=== PATIENT | female | born 1940 | race Caucasian/White ===

== ENCOUNTER 2021-01-06 09:27 | Inpatient (IN) | payer MEDICARE, OTHER ==
[2021-01-06] MEDS ORDERED: MORPHINE SULFATE 4 MG/ML SYRINGE IVP STA ×2 (09:52→11:28)
--- NOTE | 2021-01-06 09:59 | ED ---
General Adult HPI - General Chief complaint: Fall Stated complaint: fall Time Seen by Provider: 01/06/21 09:34 Source: patient, EMS, RN notes reviewed, Caregiver Mode of arrival: EMS Limitations: altered mental status - History of Present Illness Initial comments: Patient is a pleasant 80-year-old female presenting to the emergency department following a fall. Patient was walking up a step and fell down. Patient sustained injury to her left leg. Injury was witnessed. No head injury or loss of consciousness. Patient only complains of discomfort of her left leg. Patient is a poor historian. Unclear if history of similar injury previously. Patient did not ambulate following the injury. [employer] states patient is at baseline mental status. - Related Data Home Medications Medication Instructions Recorded Confirmed Albuterol Nebulized [Ventolin 2.5 mg INHALATION RT-Q4H PRN 01/06/21 01/06/21 Nebulized] Alendronate Sodium [Fosamax] 70 mg PO WE 01/06/21 01/06/21 Aspirin EC [Ecotrin Low Dose] 81 mg PO DAILY@79901/06/21 01/06/21 Calcium 500 + D 400 1 tab PO DAILY@79901/06/21 01/06/21 Colloidal Oatmeal [Eucerin Eczema 1 applic TOPICAL HS@199901/06/21 01/06/21 Relief] Docusate [Colace] 100 mg PO BID@08,199901/06/21 01/06/21 Ergocalciferol (Vitamin D2) 50 mcg PO DAILY@0800 01/06/21 01/06/21 [Vitamin D2 (2000 Iu)] Famotidine [Pepcid] 20 mg PO DAILY PRN 01/06/21 01/06/21 Memantine [Namenda] 10 mg PO BID@08,199901/06/21 01/06/21 Midodrine HCl [ProAmantine] 2.5 mg PO BID@08,199901/06/21 01/06/21 Mirabegron [Myrbetriq] 50 mg PO DAILY@0800 01/06/21 01/06/21 Mirtazapine [Remeron] 15 mg PO HS 01/06/21 01/06/21 Montelukast [Singulair] 10 mg PO DAILY PRN 01/06/21 01/06/21 OLANZapine [ZyPREXA] 7.5 mg PO HS@199901/06/21 01/06/21 Sennosides/Docusate Sodium [Senna 2 cap PO HS 01/06/21 01/06/21 Plus 8.6-50 mg Softgel] Sertraline [Zoloft] 50 mg PO BID@0800,1700 01/06/21 01/06/21 busPIRone HCL [Buspar] 7.5 mg PO TID@0800,1700,199901/06/21 01/06/21 diphenhydrAMINE [Benadryl] 25 - 50 mg PO Q6H PRN 01/06/21 01/06/21 hydrOXYzine HCL [Atarax] 50 mg PO Q6H PRN 01/06/21 01/06/21 Allergies Allergy/AdvReac Type Severity Reaction Status Date / Time sulfamethoxazole Allergy Rash/Hives Verified 01/06/21 10:16 [From Bactrim] trimethoprim [From Bactrim] Allergy Rash/Hives Verified 01/06/21 10:16 Review of Systems ROS Statement: Those systems with pertinent positive or pertinent negative responses have been documented in the HPI. ROS Other: All systems not noted in ROS Statement are negative. Constitutional: Denies: fever Eyes: Denies: eye pain ENT: Denies: ear pain Respiratory: Denies: cough Cardiovascular: Denies: chest pain Endocrine: Denies: fatigue Gastrointestinal: Denies: abdominal pain Genitourinary: Denies: dysuria Musculoskeletal: Reports: as per HPI. Denies: back pain Skin: Denies: rash Neurological: Denies: headache Past Medical History Past Medical History: Osteoarthritis (OA) Past Surgical History: Joint Replacement, Orthopedic Surgery Additional Past Surgical History / Comment(s): PT is mentally handicapped Past Psychological History: Anxiety Smoking Status: Never smoker Past Alcohol Use History: None Reported Past Drug Use History: None Reported General Exam Limitations: altered mental status General appearance: alert, in no apparent distress Head exam: Present: atraumatic, normocephalic Eye exam: Present: normal appearance, PERRL, EOMI ENT exam: Present: normal oropharynx Neck exam: Present: normal inspection, full ROM. Absent: tenderness Respiratory exam: Present: normal lung sounds bilaterally Cardiovascular Exam: Present: regular rate, normal rhythm Expanded Peripheral pulses: 2+: Dorsalis Pedis (R), Dorsalis Pedis (L) GI/Abdominal exam: Present: soft. Absent: tenderness Extremities exam: Present: other (Left lower tibia region with opening with protrusion of tibia, approximately 2 cm. Mild oozing blood. Apparent def ormity. Distally patient is able to move toes and sense light touch.) Back exam: Present: normal inspection. Absent: vertebral tenderness Neurological exam: Present: alert. Absent: motor sensory deficit Expanded Neurological exam: Present: protecting the airway Patient oriented to: Present: person, place. Absent: time ([employer] states chronic) Speech: Present: fluid speech Eye Response: (4) open spontaneously Motor Response: (6) obeys commands Verbal Response: (4) confused conversation Psychiatric exam: Present: normal affect, normal mood Skin exam: Present: normal color Course Vital Signs 01/06/21 01/06/21 09:36 10:51 Temperature 98.5 F Pulse Rate 89 91 Respiratory 18 16 Rate Blood Pressure 160/82 159/82 O2 Sat by Pulse 96 98 Oximetry - Reevaluation(s) Reevaluation #1: 01/06/21 09:59 Area irrigated with saline and Betadine. 01/06/21 10:43 X-rays are available. Orthopedics has been paged. 01/06/21 11:02 Orthopedics has been paged again 01/06/21 11:21 Case was discussed with Dr. Cardenas who is in the OR at this time. He does recommend washing the area out which has arty been done as well as emergency department reduction and attempt to suture with a couple of nylon sutures. Otherwise patient can be admitted to him and they will evaluate patient later. 01/06/21 11:44 Ronald is evaluating patient and did do reduction and splinting. Medical Decision Making - Lab Data Result diagrams: 01/06/21 10:35 01/06/21 10:35 Lab Results 01/06/21 01/06/21 01/06/21 Range/Units 10:35 10:35 10:35 WBC 9.8 (3.8-10.6) k/uL RBC 3.85 (3.80-5.40) m/uL Hgb 12.0 (11.4-16.0) gm/dL Hct 37.0 (34.0-46.0) % MCV 95.9 (80.0-100.0) fL MCH 31.1 (25.0-35.0) pg MCHC 32.4 (31.0-37.0) g/dL RDW 14.1 (11.5-15.5) % Plt Count 288 (150-450) k/uL MPV 8.2 Neutrophils % 81 % Lymphocytes % 14 % Monocytes % 3 % Eosinophils % 1 % Basophils % 0 % Neutrophils # 7.9 H (1.3-7.7) k/uL Lymphocytes # 1.3 (1.0-4.8) k/uL Monocytes # 0.3 (0-1.0) k/uL Eosinophils # 0.1 (0-0.7) k/uL Basophils # 0.0 (0-0.2) k/uL PT 10.5 (9.0-12.0) sec INR 1.0 (<1.2) APTT 21.2 L (22.0-30.0) sec Sodium 139 (137-145) mmol/L Potassium 4.6 (3.5-5.1) mmol/L Chloride 107 (98-107) mmol/L Carbon Dioxide 29 (22-30) mmol/L Anion Gap 3 mmol/L BUN 23 H (7-17) mg/dL Creatinine 0.75 (0.52-1.04) mg/dL Est GFR (CKD-EPI)AfAm 88 (>60 ml/min/1.73 sqM) Est GFR (CKD-EPI)NonAf 76 (>60 ml/min/1.73 sqM) Glucose 113 H (74-99) mg/dL Calcium 8.9 (8.4-10.2) mg/dL Disposition Clinical Impression: Open fracture of left tibia and fibula Disposition: ADMITTED IP TO THIS HOSP Condition: Serious Is patient prescribed a controlled substance at d/c from ED?: No Referrals: Miki Weston MD [Primary Care Provider] - 1-2 days Decision Time: 11:22
--- NOTE | 2021-01-06 10:44 | XR ---
AP pelvis HISTORY: Trauma and pain Single frontal view of the pelvis is submitted. No priors for comparison Patient shows postop change status post open reduction internal fixation of the proximal left femur, there is cortical thickening. Some irregularity the inferior pubic ramus on the right does not appear acute and may be due to remote trauma. There is a spinal curvature. Degenerative disc changes are pr esent in the visualized lower lumbar spine. Bone mineralization is reduced. IMPRESSION: No acute fracture or dislocation is evident. Evidence of prior trauma.
--- NOTE | 2021-01-06 10:46 | XR ---
EXAMINATION TYPE: XR chest 1V DATE OF EXAM: 01/06/2021 COMPARISON: NONE HISTORY: Trauma and pain TECHNIQUE: Single frontal view of the chest is obtained. FINDINGS: There is no focal air space opacity, pleural effusion, or pneumothorax seen. The cardiac silhouette size is within normal limits. The osseous structures are intact. Linear density in the p erihilar location on the right may be due to subsegmental atelectatic changes. The lung volumes are l ow. Aorta is dense. Patient is rotated. IMPRESSION: No significant abnormality evident. Expiratory rotated exam. Some minimal subsegmental a telectatic changes may be present.
--- NOTE | 2021-01-06 10:49 | XR ---
Left leg and left ankle HISTORY: Trauma and pain 2 views the left ankle, 2 views the left leg There is a comminuted distal metaphyseal left fibular fracture and distal tibial fracture with bayone t apposition of the tibial fracture, posterior and medial displacement, rotatory component, posterior angulation at the fractures with displaced fracture fragments. IMPRESSION: Fractures as described.
[2021-01-06 10:54] LABS: Basophils % (A) 0 %; Eosinophils # (A) 0.1 k/uL (0-0.7); Eosinophils % (A) 1 %; Lymphocytes # (A) 1.3 k/uL (1.0-4.8); Lymphocytes % (A) 14 %; MCH 31.1 pg (25.0-35.0); MCHC 32.4 g/dL (31.0-37.0); MCV 95.9 fL (80.0-100.0); Mean Platelet Volume 8.2; Monocytes # (A) 0.3 k/uL (0-1.0); Monocytes % (A) 3 %; Neutrophils # (A) 7.9 k/uL (1.3-7.7); Neutrophils % (A) 81 %; Platelet Count 288 k/uL (150-450); RBC 3.85 m/uL (3.80-5.40); RDW 14.1 % (11.5-15.5); WBC 9.8 k/uL (3.8-10.6)
[2021-01-06 10:56] LABS: Calcium 8.9 mg/dL (8.4-10.2)
[2021-01-06 11:10] LABS: Prothrombin Time 10.5 sec (9.0-12.0)
[2021-01-06 11:17] LABS: Partial Thromboplastin Time 21.2 sec (22.0-30.0)
[2021-01-06 11:19] LABS: Potassium 4.6 mmol/L (3.5-5.1)
[2021-01-06] MEDS ORDERED: MIDAZOLAM 1 MG/ML 5 ML VIAL IV STA (11:28)
[2021-01-06] MEDS ORDERED: LIDOCAINE 1% INJ 10MG/ML (20 ML MDV) SQ ONE (11:28)
[2021-01-06] MEDS ORDERED: NALOXONE 0.4 MG/ML 1 ML VIAL IV PRN (11:45)
[2021-01-06] MEDS ORDERED: DIPH,PERTUS(ACELL)TETVAC-LF 0.5 ML VIAL IM ONE (12:03)
--- NOTE | 2021-01-06 12:17 | P.HPOR ---
History of Present Illness H&P Date: 01/06/21 Chief Complaint: Left leg pain 80 yo demented female presents with her caregiver from her adult foster home after a fall from standing. She lives of left lower extremity pain. She was found to have an open tib-fib fracture distal one third in the emergency department. Patient was seen and examined in the emergency department she has a obvious deformity of her left lower extremity. She is very demented unable to provide a very thorough history and her caregiver is doing most of her history to us is at bedside. She denies any loss of consciousness or blunt head trauma with the fall she denies any pain in any other areas currently. She is able to move her right lower extremity as well as her upper extremities without any issues. She shakes her head no for fevers or chills or shortness of breath at this time and simply puts her left leg and pain. Review of Systems 14 points review of systems completed and as stated in HPI, all other systems reviewed are negative. Past Medical History Past Medical History: Osteoarthritis (OA) Past Surgical History: Joint Replacement, Orthopedic Surgery Additional Past Surgical History / Comment(s): PT is mentally handicapped Past Psychological History: Anxiety Smoking Status: Never smoker Past Alcohol Use History: None Reported Past Drug Use History: None Reported Medications and Allergies Home Medications Medication Instructions Recorded Confirmed Type Albuterol Nebulized [Ventolin 2.5 mg INHALATION RT-Q4H PRN 01/06/21 01/06/21 History Nebulized] Alendronate Sodium [Fosamax] 70 mg PO WE 01/06/21 01/06/21 History Aspirin EC [Ecotrin Low Dose] 81 mg PO DAILY@79901/06/21 01/06/21 History Calcium 500 + D 400 1 tab PO DAILY@79901/06/21 01/06/21 History Colloidal Oatmeal [Eucerin Eczema 1 applic TOPICAL HS@199901/06/21 01/06/21 History Relief] Docusate [Colace] 100 mg PO BID@01/06/21 01/06/21 History Ergocalciferol (Vitamin D2) 50 mcg PO DAILY@79901/06/21 01/06/21 History [Vitamin D2 (2000 Iu)] Famotidine [Pepcid] 20 mg PO DAILY PRN 01/06/21 01/06/21 History Memantine [Namenda] 10 mg PO BID@0800,199901/06/21 01/06/21 History Midodrine HCl [ProAmantine] 2.5 mg PO BID@0800,199901/06/21 01/06/21 History Mirabegron [Myrbetriq] 50 mg PO DAILY@0800 01/06/21 01/06/21 History Mirtazapine [Remeron] 15 mg PO HS 01/06/21 01/06/21 History Montelukast [Singulair] 10 mg PO DAILY PRN 01/06/21 01/06/21 History OLANZapine [ZyPREXA] 7.5 mg PO HS@199901/06/21 01/06/21 History Sennosides/Docusate Sodium [Senna 2 cap PO HS 01/06/21 01/06/21 History Plus 8.6-50 mg Softgel] Sertraline [Zoloft] 50 mg PO BID@0800,1700 01/06/21 01/06/21 History busPIRone HCL [Buspar] 7.5 mg PO TID@0800,1700,199901/06/21 01/06/21 History diphenhydrAMINE [Benadryl] 25 - 50 mg PO Q6H PRN 01/06/21 01/06/21 History hydrOXYzine HCL [Atarax] 50 mg PO Q6H PRN 01/06/21 01/06/21 History Allergies Allergy/AdvReac Type Severity Reaction Status Date / Time sulfamethoxazole Allergy Rash/Hives Verified 01/06/21 10:16 [From Bactrim] trimethoprim [From Bactrim] Allergy Rash/Hives Verified 01/06/21 10:16 Physical Examination Osteopathic Statement: *. No significant issues noted on an osteopathic structural exam other than those noted in the History and Physical/Consult. patient is alert and oriented 1-2. She is able stand alone and her caregivers at her bedside her respiratory rate is normal heart rate is normal she has normal sinus rhythm currently on monitor O2 sats are adequate at 94% with 2 L oxygen obvious deformity of her left lower extremity there is a 1 cm wound on the medial aspect of the right distal tibia. There is protruding distal bone. The leg is held distally and internal rotation the patient is able to wiggle her toes however she is not able to move her leg secondary to pain. She has palpable dorsalis pedis as well as posterior tibial pulses are capillary refill is brisk and less than 2 seconds her compartments are soft and compressible. Sensation is intact to light touch nerve distribution secondary survey remaining extremities shows that she has good range of motion upper and lower extremity uninjured at this time all joints appear mobile with no issues she does have abrasions to her face which are noted. She denies loss of consciousness with the fall. She denies any other pain at this time. Large distracting injury. Results tib-fib films as well as ankle films on the left show a comminuted shortened externally rotated distal tib-fib fracture. This is a distal one third region. There is high comminution of the tibia as well as the fibula in this region.this is obviously open. There is no proximal fibular fracture there is no derangement of the visualized knee at this time. No other bony abnormalities are noted. Ankle mortise appears stable AP pelvis reviewed shows stable pelvis no ring disruption no evidence of fracture dislocation chest x-ray demonstrates good lung expansion no evidence of fracture dislocation - Labs Labs: Abnormal Lab Results - Last 24 Hours (Table) 01/06/21 01/06/21 01/06/21 Range/Units 10:35 10:35 10:35 Neutrophils # 7.9 H (1.3-7.7) k/uL APTT 21.2 L (22.0-30.0) sec BUN 23 H (7-17) mg/dL Glucose 113 H (74-99) mg/dL H & H 01/06/21 Range/Units 10:35 Hgb 12.0 (11.4-16.0) gm/dL Hct 37.0 (34.0-46.0) % Coagulation 01/06/21 Range/Units 10:35 INR 1.0 (<1.2) Result Diagrams: 01/06/21 10:35 01/06/21 10:35 Assessment and Plan Assessment: 80-year-old female status post fall from standing 1. Left grade IIIa open distal one third tibia and fibular fracture, comminuted, displaced, rotated 2. Status post fall from standing no blunt head trauma or loss of consciousness 3. Dementia 4. Complex medical patient Plan: after informed consent by the patient's caregiver he performed a closed reduction in emergency department. The wound was then copiously irrigated with 3 L normal sterile saline followed by Betadine irrigation followed by sterile saline. The wound was then provisionally closed with 2-0 nylon in simple fashion. This allowed for bone to remain underneath the skin. There is about 1 cm longitudinal laceration on the medial aspect of the distal leg on the left. We then placed the patient in a well-padded long leg splints on the left after placing nonstick in sterile soaked gauze over the wound. The patient was medially started on cefazolin upon arrival to the emergency department within 30 minutes. She tolerated the reduction very well there are no complications we will obtain postreduction films as well as a computed tomography scan of her left lower extremity admit patient to trauma service and orthopedics with medicine to consult for clearance. OR today for irrigation debridement possible ex-fix placement versus IM nail placement left lower extremity pain control as needed, low on narcotics medicine consult and advisement will follow closely and make further recommendations as needed at this time I spoke with the patient's caregiver who is at bedside. She is comfortable with this plan a care we will plan on taking her to the OR sometime today for irrigation and debridement of her wound as well as possible ex-fix placement v ersus intramedullary nail placement depending on what we find in her soft tissues. The caregiver was comfortable with this plan to carry to his agreeable to it there, both of the risks of surgery including the risk of bleeding infection damage trying to risk of reoperation risk of anesthesia up to and including she is willing to assume these risks and all the other risks of surgery. They will obtain an informed consent for the surgical procedure shortly.
[2021-01-06] MEDS: SODIUM CHLORIDE 0.9% 1,000 ML IV SCH (13:06)
--- NOTE | 2021-01-06 14:10 | XR ---
EXAMINATION TYPE: XR ankle complete LT DATE OF EXAM: 01/06/2021 COMPARISON: Today HISTORY: Post reduction TECHNIQUE: 3 views FINDINGS: There are transverse comminuted fractures of the distal shaft of the tibia and fibula. Ther e is medial angulation at the fracture sites. There is 50% offset of the tibial fracture. There is 10 0% offset of the fibula fracture. Position is improved compared to initial exam. Ankle mortise is katelynn tomic. IMPRESSION: There is some improvement in the position of the fractures compared to initial exam.
--- NOTE | 2021-01-06 14:12 | XR ---
EXAMINATION TYPE: XR tibia fibula LT DATE OF EXAM: 01/06/2021 COMPARISON: Today HISTORY: Post reduction TECHNIQUE: 2 views FINDINGS: 2 views were obtained through the cast that show comminuted fractures of the distal shaft o f the tibia and fibula. There is mild medial angulation at the fracture sites. There is up to 100% of fset. There is Achilles calcaneal spurring. The knee joint appears anatomic. IMPRESSION: Comminuted slightly angulated and displaced fractures. There is improved position compare d to initial exam.
--- NOTE | 2021-01-06 16:32 | P.PN ---
Progress Note - Text Progress Note Date: 01/06/21 I discussed the procedure over the phone with her caregiver Gabby Lane who has given consent over the phone with two witnesses for the procedure. She understands the risks and benefits of the procedure as well as the possiblity of ex-fix vs IM nail placement and the inherent risk of infection given the fracture is open. She and the patient are willing to proceed with the surgery and are willing to accept all the risks and limitations of surgical intervention.
[2021-01-06] MEDS ORDERED: VANCOMYCIN 1,000 MG in SODIUM CHLORIDE 0.9% 250 ML IVPB STA (16:34)
[2021-01-06] MEDS ORDERED: LIDOCAINE 1% INJ 10MG/ML (20 ML MDV) ONE (16:44)
[2021-01-06] MEDS ORDERED: VECURONIUM 10 MG VIAL IV ONE (16:44)
[2021-01-06] MEDS ORDERED: GLYCOPYRROLATE 0.2 MG/ML 2 ML VIAL ONE (16:44)
[2021-01-06] MEDS ORDERED: DEXAMETHASONE SOD PHOSPHATE 10 MG/ML 1 ML VIAL ONE (16:44)
[2021-01-06] MEDS ORDERED: PROPOFOL 10 MG/ML 20 ML VIAL IV ONE (16:44)
[2021-01-06] MEDS ORDERED: ONDANSETRON 4 MG/2 ML VIAL ONE (16:44)
[2021-01-06] MEDS ORDERED: SUCCINYLCHOLINE CHLORIDE 100 MG/5 ML SYR IV ONE (16:44)
[2021-01-06] MEDS ORDERED: NEOSTIGMINE 1 MG/ML 10 ML VIAL ONE (16:44)
[2021-01-06] MEDS ORDERED: PHENYLEPHRINE-0.9% NACL SYG 1,000 MCG/10 ML SYRINGE ONE (16:44)
[2021-01-06] MEDS ORDERED: fentaNYL (PF) 50 MCG/ML 2 ML AMP ONE (16:44)
[2021-01-06] MEDS ORDERED: IV FLUID CONTINUATION 1,000 ML IV ONE ×2 (17:16)
[2021-01-06] MEDS ORDERED: CEFAZOLIN IRRIGATION ONE ×2 (17:17→18:30)
[2021-01-06] MEDS ORDERED: SODIUM CHLORIDE 0.9% 100 ML with ceFAZolin 1,000 MG IV ONE ×2 (17:17)
[2021-01-06] MEDS ORDERED: SODIUM CHLORIDE 0.9% IRRIGATION ONE ×2 (17:17→18:30)
[2021-01-06] MEDS ORDERED: SODIUM CHLORIDE 0.9% 100 ML with VANCOMYCIN 1,000 MG IV ONE ×2 (17:17)
[2021-01-06] MEDS ORDERED: VANCOMYCIN 1,000 MG VIAL MISCELLANE ONE (17:19)
[2021-01-06] MEDS ORDERED: LACTATED RINGERS 1,000 ML IV ONE (17:45)
[2021-01-06] MEDS ORDERED: HYDROmorphone 0.5 MG/0.5 ML SYRINGE IVP ONE ×3 (19:48→19:58)
[2021-01-06] MEDS: traMADol 50 MG TAB PO SCH (21:15)
[2021-01-07] MEDS: SODIUM CHLORIDE 0.9% 1,000 ML IV SCH ×3 (01:38→20:16)
[2021-01-07] MEDS: MORPHINE SULFATE 4 MG/ML SYRINGE IV PRN (01:39)
[2021-01-07] MEDS ORDERED: FAMOTIDINE 20 MG TAB PO PRN (05:38)
[2021-01-07] MEDS ORDERED: ALBUTEROL NEBULIZED 2.5 MG/3 ML INHALATION PRN (05:38)
--- NOTE | 2021-01-07 05:40 | P.CONS ---
History of Present Illness - Reason for Consult Consult date: 01/07/21 - History of Present Illness The patient is a 80-year-old female with a PMH of developmental delay, resident of an adult foster care who was brought in to the urgency after a fall. The patient is a very poor historian and only answers basic questions with one-word answers. History obtained from the chart as the contacts from [facility] couldn't be reached via phone number in chart. When asked if the patient was in pain, she would shake her head no. She said notes that any chest discomfort, shortness of breath, fever, chills. She was able to state her name and say that she was in the hospital. The patient reportedly had a left lower extremity open tib-fib fracture after a fall from standing position. No head trauma or loss of consciousness reported. The patient underwent the procedure earlier today and was seen postoperatively on the surgical unit. Review of Systems ROS unobtainable: due to mental status Past Medical History Past Medical History: Osteoarthritis (OA) History of Any Multi-Drug Resistant Organisms: None Reported Past Surgical History: Joint Replacement, Orthopedic Surgery Additional Past Surgical History / Comment(s): patient is mentally handicapped Past Anesthesia/Blood Transfusion Reactions: No Reported Reaction Past Psychological History: Anxiety Smoking Status: Never smoker Past Alcohol Use History: None Reported Past Drug Use History: None Reported Medications and Allergies Home Medications Medication Instructions Recorded Confirmed Type Albuterol Nebulized [Ventolin 2.5 mg INHALATION RT-Q4H PRN 01/06/21 01/06/21 History Nebulized] Alendronate Sodium [Fosamax] 70 mg PO WE 01/06/21 01/06/21 History Aspirin EC [Ecotrin Low Dose] 81 mg PO DAILY@79901/06/21 01/06/21 History Calcium 500 + D 400 1 tab PO DAILY@79901/06/21 01/06/21 History Colloidal Oatmeal [Eucerin Eczema 1 applic TOPICAL HS@199901/06/21 01/06/21 History Relief] Docusate [Colace] 100 mg PO BID@799,199901/06/21 01/06/21 History Ergocalciferol (Vitamin D2) 50 mcg PO DAILY@79901/06/21 01/06/21 History [Vitamin D2 (2000 Iu)] Famotidine [Pepcid] 20 mg PO DAILY PRN 01/06/21 01/06/21 History Memantine [Namenda] 10 mg PO BID@0800,199901/06/21 01/06/21 History Midodrine HCl [ProAmantine] 2.5 mg PO BID@0800,199901/06/21 01/06/21 History Mirabegron [Myrbetriq] 50 mg PO DAILY@0800 01/06/21 01/06/21 History Mirtazapine [Remeron] 15 mg PO HS 01/06/21 01/06/21 History Montelukast [Singulair] 10 mg PO DAILY PRN 01/06/21 01/06/21 History OLANZapine [ZyPREXA] 7.5 mg PO HS@199901/06/21 01/06/21 History Sennosides/Docusate Sodium [Senna 2 cap PO HS 01/06/21 01/06/21 History Plus 8.6-50 mg Softgel] Sertraline [Zoloft] 50 mg PO BID@0800,1700 01/06/21 01/06/21 History busPIRone HCL [Buspar] 7.5 mg PO TID@0800,1700,199901/06/21 01/06/21 History diphenhydrAMINE [Benadryl] 25 - 50 mg PO Q6H PRN 01/06/21 01/06/21 History hydrOXYzine HCL [Atarax] 50 mg PO Q6H PRN 01/06/21 01/06/21 History Allergies Allergy/AdvReac Type Severity Reaction Status Date / Time sulfamethoxazole Allergy Rash/Hives Verified 01/06/21 10:16 [From Bactrim] trimethoprim [From Bactrim] Allergy Rash/Hives Verified 01/06/21 10:16 Physical Exam Vitals: Vital Signs Temp Pulse Pulse Resp BP BP Pulse Ox 01/07/21 02:00 98.0 F 83 17 108/62 94 L 01/06/21 23:02 83 105/60 97 01/06/21 22:46 77 94/57 92 L 01/06/21 22:32 81 108/58 93 L 01/06/21 22:16 78 115/69 90 L 01/06/21 21:46 79 114/70 92 L 01/06/21 21:32 78 103/56 90 L 01/06/21 21:16 73 97/63 93 L 01/06/21 21:01 72 103/79 90 L 01/06/21 20:47 98.5 F 91 131/63 94 L 01/06/21 20:45 83 16 01/06/21 20:00 64 16 125/66 97 01/06/21 19:45 71 16 157/66 100 01/06/21 19:30 97.7 F 82 16 140/68 94 L 01/06/21 16:01 98.5 F 83 16 133/64 98 01/06/21 16:00 83 16 133/64 98 01/06/21 15:00 83 16 126/60 98 01/06/21 14:00 80 16 111/62 98 01/06/21 13:00 82 16 120/59 98 01/06/21 12:00 80 16 113/58 98 01/06/21 11:00 82 16 116/61 98 01/06/21 10:51 91 16 159/82 98 01/06/21 09:36 98.5 F 89 18 160/82 96 Intake and Output 01/06/21 01/06/21 01/07/21 14:59 22:59 06:59 Intake Total 1502 Output Total 600 200 Balance 902 -200 Intake: IV 1502 Output: Urine 300 200 Estimated Blood Loss 300 Other: Voiding Method Indwelling Catheter Weight 45.359 kg 45.359 kg General: non toxic, no distress, appears at stated age, sitting Derm: no unusual rashes/lesions no unusual ecchymoses, warm, dry Head: atraumatic, normocephalic, symmetric Eyes: EOMI, no lid lag, anicteric sclera, pupils equal round reactive to light ENT: Nose and ears atraumatic, no thrush, no pharyngeal erythema Neck: No thyromegaly, no cervical lymphadenopathy, trachea midline, supple Mouth: no lip lesion, mucus membranes moist Cardiovascular: S1S2 reg, no murmur, positive posterior tibial pulse bilateral, no edema, capillary refill less than 2 seconds Lungs: CTA bilateral, no rhonchi, no rales , no accessory muscle use Abdominal: soft, nontender to palpation, no guarding, no appreciable organomegaly, normal bowel sounds Ext: no gross muscle atrophy, no contractures, LLE STEPHEN bandage in place, moving all extremities Neuro: CN II-XI grossly intact, no gross focal deficits noted Psych: Awake, slow to respond but answering basic questions only, states her name and knows she is in hospital Results CBC & Chem 7: 01/06/21 10:35 01/06/21 10:35 Labs: Abnormal Lab Results - Last 24 Hours (Table) 01/06/21 01/06/21 01/06/21 Range/Units 10:35 10:35 10:35 Neutrophils # 7.9 H (1.3-7.7) k/uL APTT 21.2 L (22.0-30.0) sec BUN 23 H (7-17) mg/dL Glucose 113 H (74-99) mg/dL Assessment and Plan Plan: Asthma, without acute exacerbation, unknown severity -C/w home meds: Singulair, Albuterol L tib-fib fracture s/p repair -Defer management including pain control and DVT prophylaxis to surgery service
--- NOTE | 2021-01-07 08:19 | XR ---
EXAMINATION TYPE: XR tibia fibula LT, FL guidance operating room DATE OF EXAM: 01/06/2021 COMPARISON: Plain film same date HISTORY: Fractures Fluoroscopy support supplied to the referring clinician. See dictated report from orthopedic surgery , 6 intraoperative C-arm images document the procedure, 2 minutes 34 seconds fluoroscopy time supplie d
[2021-01-07] MEDS: MEMANTINE 10 MG TAB PO SCH ×2 (08:58→20:16)
[2021-01-07] MEDS: traMADol 50 MG TAB PO SCH ×4 (08:58→20:15)
[2021-01-07] MEDS: PANTOPRAZOLE 40 MG/10 ML VIAL IV SCH (08:58)
[2021-01-07] MEDS: SERTRALINE 50 MG TAB PO SCH ×2 (08:58→17:06)
[2021-01-07] MEDS: DOCUSATE 100 MG CAP PO SCH ×2 (08:58→20:15)
[2021-01-07] MEDS: ENOXAPARIN 40 MG/0.4 ML SYRINGE SQ SCH (08:58)
[2021-01-07 12:25] LABS: HCT 25.7 % (34.0-46.0); HGB 8.7 gm/dL (11.4-16.0); MCH 32.8 pg (25.0-35.0); MCHC 33.9 g/dL (31.0-37.0); MCV 96.9 fL (80.0-100.0); Mean Platelet Volume 7.6; Platelet Count 232 k/uL (150-450); RBC 2.65 m/uL (3.80-5.40); RDW 13.9 % (11.5-15.5); WBC 8.8 k/uL (3.8-10.6)
--- NOTE | 2021-01-07 14:07 | P.PN ---
Subjective Progress Note Date: 01/07/21 Principal diagnosis: Status post ORIF left distal fibular fracture, intramedullary nail left distal open tibia fracture patient was evaluated today at bedside, she is resting comfortably. She's noting no acute changes in her symptoms. Patient does have severe dementia, her verbal pain shoes were very minimal on exam. Nursing staff states she's been rather comfortable. Objective - Vital Signs Vital signs: Vital Signs Temp 99.6 F 01/07/21 10:00 Pulse 100 01/07/21 10:00 Resp 16 01/07/21 10:00 BP 109/47 01/07/21 10:00 Pulse Ox 94 L 01/07/21 10:00 Intake & Output 01/06/21 01/07/21 01/07/21 18:59 06:59 18:59 Intake Total 1402 100 532 Output Total 800 Balance 1402 -700 532 Weight 45.359 kg 45.359 kg Intake: IV 1402 100 Oral 532 Output: Urine 500 Estimated Blood Loss 300 Other: Voiding Method Indwelling Catheter Indwelling Catheter - Exam Left lower extremity: Reymundo bandage and splint are all in good position and condition. She is able to wiggle the toes. The skin is warm to touch both proximal distal to the splint. The compartments of the upper leg are soft. - Labs CBC & Chem 7: 01/07/21 12:03 01/06/21 10:35 Labs: Abnormal Lab Results - Last 24 Hours (Table) 01/07/21 Range/Units 12:03 RBC 2.65 L (3.80-5.40) m/uL Hgb 8.7 L D (11.4-16.0) gm/dL Hct 25.7 L (34.0-46.0) % Assessment and Plan Assessment: Postoperative day #1 status post ORIF left distal fibular fracture, intramedullary nail left open tibia fracture Acute blood loss anemia, expected surgical outcome Plan: Pain control, continue with current medication DVT prophylaxis, continue with Lovenox Nonweightbearing left lower extremity Dressing change tomorrow at bedside Ice and elevate Other certified medical transcriptionist and recommendations Continue to follow during inpatient stay Time with Patient: Less than 30
[2021-01-07] MEDS ORDERED: SODIUM CHLORIDE 0.9% 500 ML 500 ML IV ONE (16:58)
[2021-01-07] MEDS: SENNOSIDES-DOCUSATE SODIUM 1 EACH TAB PO SCH (20:14)
[2021-01-07] MEDS: ACETAMINOPHEN TAB 325 MG TAB PO PRN (20:14)
[2021-01-07] MEDS: OLANZapine 7.5 MG TAB PO SCH (20:15)
[2021-01-08] MEDS: MORPHINE SULFATE 4 MG/ML SYRINGE IV PRN (01:01)
[2021-01-08] MEDS: SERTRALINE 50 MG TAB PO SCH ×2 (07:19→16:50)
[2021-01-08] MEDS: DOCUSATE 100 MG CAP PO SCH ×2 (07:19→21:52)
[2021-01-08] MEDS: MEMANTINE 10 MG TAB PO SCH ×2 (07:19→21:52)
[2021-01-08] MEDS: PANTOPRAZOLE 40 MG/10 ML VIAL IV SCH (07:19)
[2021-01-08] MEDS: SODIUM CHLORIDE 0.9% 1,000 ML IV SCH (07:20)
[2021-01-08] MEDS: ENOXAPARIN 40 MG/0.4 ML SYRINGE SQ SCH (07:20)
[2021-01-08] MEDS: traMADol 50 MG TAB PO SCH ×4 (07:20→21:52)
--- NOTE | 2021-01-08 10:25 | P.OP ---
Date of Procedure: 01/06/21 Preoperative Diagnosis: 1. Left, Open, comminuted distal 1/3 tibial shaft fracture GA Grade IIIA 2. Left high, open, Guerrero C distal fibular fracture (associated level tibia) 3. FFS with no BHT or LOC 4. Dementia 5. Complex medical patient Postoperative Diagnosis: 1. Left, Open, comminuted distal 1/3 tibial shaft fracture GA Grade IIIA, 3 cm open wound with extensive periosteal stripping, and disruption with high comminution, devitalized bone and bony defect. 2. Left high, open, Guerrero C distal fibular fracture (associated level tibia) highly comminuted, displaced. 3. FFS with no BHT or LOC 4. Dementia 5. Complex medical patient Procedure(s) Performed: 1. Irrigation and debridment of open distal 1/3 tibia and fibular fracture with the following -knife for removal of devitalized soft tissue and for edge freshening -curette for scraping of bone and soft tissues -rongure for removal of devitalized bone and soft tissues -9 L of NSS through low flow cysto tubing for irrigation of wound 2. Open reduction and internal fixation of distal fibula fracture 3. Open reduction and intramedullary nail fixation of distal 1/3 tibial shaft fracture through a suprapatellar approach 4. Complex wound closure 8 cm x 4 cm x 3 cm medial distal leg Implants: -1/3 tubular plate and scews -Synthese 10 mm x 360 mm tibial IM nail -locking screws x 4 Anesthesia: GETA Surgeon: Kevin Nolan Director Of Content And Programming #1: Thad Gilbert (Was present for the entire case and was necessary due to the complexity of the case.) Estimated Blood Loss (ml): 300 IV fluids (ml): 1,500 Urine output (ml): 300 Pathology: none sent Condition: stable Disposition: PACU Indications for Procedure: 80 yo demented female presents with her caregiver from her adult foster home after a fall from standing. She lives of left lower extremity pain. She was found to have an open tib-fib fracture distal one third in the emergency department. Patient was seen and examined in the emergency department she has a obvious deformity of her left lower extremity. She is very demented unable to provide a very thorough history and her caregiver is doing most of her history to us is at bedside. She denies any loss of consciousness or blunt head trauma with the fall she denies any pain in any other areas currently. She is able to move her right lower extremity as well as her upper extremities without any issues. She shakes her head no for fevers or chills or shortness of breath at this time and simply puts her left leg and pain. Operative Findings: Highly comminuted, highly unstable with significant periosteal stripping of distal 1/3 tibia and fibula fracture with 3 cm open medial wound with devitalized bone protrusion. Description of Procedure: The patient was seen and examined in the preoperative area. All preoperative protocols were followed. Informed consent was obtained risks and benefits of the procedure were discussed at length. Risks including bleeding infection damage to the surrounding tissue and risk of reoperation were discussed with the patient. Risk of anesthesia up to and including was a discussed with the patient. These are outlined in the risk reviewed. They were willing to accept these risks and all of the risks of surgery. The patient was given a weight- based dose of antibiotics in the form of patient was started on Ancef immediately upon emergency department visit 2 g. She was given 1000 of vancomycin preoperatively as well. The patient was seen and evaluated by the anesthesia team who deemed them fit for surgery. The site was marked, the patient was willing to proceed with the procedure. The patient was transferred to the operative suite by the Department of anesthesia. There were then drifted off to sleep by the department of anesthesia and GETA anesthesia was used. Once adequate anesthesia had been obtained the patient was carefully transferred to the operative bed. All bony prominences were padded accordingly. SCDs were placed on the nonoperative lower extremities. Arms were well padded. The patient's left lower extremity was exposed and a tourniquet was placed on the patient's left upper thigh and was well-padded 10:15 was placed on this. Bone foam was placed underneath the patient's leg and a bump placed under the patient's hip shoes and secured to the table a safety strap as well as tape on her nonoperative lower extremity which had an SCD on it. Preoperative briefing was done with the operative team and everyone was ready for the procedure to start. The patients if lower extremity was then prepped with a Betadine wet prep and draped in the normal sterile fashion. Timeout was then performed and all parties in agreement with the procedure to be performed. We first turned our attention to the medial side of the patient's leg where the 3 cm open wound was present with a protruding piece of her tibia. This was reduced back in and we elongated the incision by approximately 3-4 cm on either side to allow for visualization deep as well as irrigation and debridement. This is done of the skin knife. We then used curettes to scrape the bone in any of the soft tissue around the area as well as around her to remove devitalized bone. There is high amounts of comminution in this area as well as periosteal stripping which seemed to extend even proximally about a 1-2 fingerbreadth distance from the incision made. We then irrigated the wound copiously with 9 L of sterile saline. This was done through a high flow low pressure cysto tubing system. We used curettes to scrape and debride any of the area as well as rongeur to remove any devitalized tissue or bone from the area. Once this was accomplished with attempted a reduction of the fracture under fluoroscopic guidance however there was high comminution and extreme instability of this fracture and so was decided to perform an open reduction internal fixation of the fibula first to allow for some stability in this region. We then made an incision over the lateral aspect of the patient's leg over the distal fibula and the fracture site dissection was taken down bluntly to the anterior portion of the fibula and the peroneal tendons were carefully elevated off of the bone. The 2 ends of the fracture were visualized there was a high [place] comminution in this area as well as bone void. However once we reduced the fracture and got it to length this created good stability for the tibia. We then placed a one third tubular plate in a bridging fashion over this area. This allowed for good fracture reduction as well as increased stability of the tibia. We were then able to better reduce the tibia. Attention was then turned to the suprapatellar region where a midline incision was made from the superior pole of patella 4 cm proximally this was taken down to the quad tendon which was split in line with its fibers. The knee joint was accessed in the suprapatellar jig was placed. Then placed the starting pin and under AP and lateral fluoroscopy in line with the shaft. Once this was in good position we performed opening reamer under lateral scope fluoroscopic guidance. We then placed a ball-tipped guidewire through the opening in this area and traveled it down to the fracture. The ball-tipped guidewire was guided into a center center position of the distal tibia just above the physeal scar. We then performed sequential reaming over the ball-tipped guidewire of the proximal two third portion of the tibia. Unfortunately there was no smaller nails available at this time although we had planned for this. And so we needed to get to an 11 reamer to allow for a 10 nail to be placed. We were able to ream to 10 5 however this was at the extreme limit of what could be allowed in this area. And we were unable to reliably reamed distally into the distal portion of the tibial shaft due to the high comminution and instability. We then confirmed placement of the ball-tipped guidewire under AP and lateral fluoroscopy and then placed a 10 mm x 360 mm suprapatellar tibial nail this was impacted into place under AP and lateral fluoroscopy and guided into the distal segment over the ball-tipped guidewire. This helped to maintain and reduce the fracture. We then placed 2 distal locking screws under [address] [place] guidance in the AP and medial to lateral positions these were confirmed to be in good position. We then through the jig proximally placed 2 static locking screws. The jig was then removed the ball-tipped guidewire removed prior to this. We then took final images which confirmed good placement of the locking screws as well as reduction of the fracture and maintenance of alignment. There is a very slight valgus noted on x-ray however clinically this was undetectable. We then once again copiously irrigated all the wounds with 3 L normal sterile saline through the joint and through the fracture. The suprapatellar incision was then closed the quad tendon was closed with a running #1 Vicryl followed by 2-0 Vicryl in the subcu region and linda. The proximal medial incision was closed in a similar fashion. The lateral incision over the fibular fracture was irrigated and closed with 2-0 Vicryl followed by a running 2-0 nylon. The medial distal opening and wound was assessed once again any devitalized tissue was removed 1 g of vancomycin powder was placed into this wound as well as Cellerate powder placed in the subcu. And then performed a complex closure on this medial wound and closed the wound with 2-0 Vicryl followed by 2-0 nylon in a combined simple tension stitch and running fashion. The wound edges approximated very well there was little to no tension on them in the skin and soft tissue in this area remained in good standing. We then cleaned and dressed the wound sterilely with sterile Adaptic 4 x 4's ABDs and the patient was placed in a well-padded well molded short leg splint on the left lower extremity. The patient was then transferred back to their hospital bed. There were awakened by department of anesthesia having tolerated the procedure very well with no complications. The patient was then transported to the postoperative care unit in stable condition.
[2021-01-08 11:57] LABS: Basophils # (A) 0.04 X 10*3/uL (0.00-0.10); Basophils % (A) 0.4 %; Eosinophils # (A) 0.27 X 10*3/uL (0.04-0.35); HCT 24.5 % (37.2-46.3); HGB 7.7 g/dL (12.0-15.0); Lymphocytes # (A) 2.68 X 10*3/uL (0.90-5.00); Lymphocytes % (A) 30.1 %; MCH 32.1 pg (27.0-32.0); MCHC 31.4 g/dL (32.0-37.0); MCV 102.1 fL (80.0-97.0); Mean Platelet Volume 10.9 fL (9.5-12.2); Monocytes # (A) 0.66 X 10*3/uL (0.20-1.00); Monocytes % (A) 7.4 %; Neutrophils # (A) 5.22 X 10*3/uL (1.80-7.70); Neutrophils % (A) 58.9 %; Platelet Count 193 X 10*3/uL (140-440); RDW 14.3 % (11.5-14.5); WBC 8.89 X 10*3/uL (4.50-10.00)
--- NOTE | 2021-01-08 12:52 | P.PN ---
Subjective Progress Note Date: 01/08/21 Principal diagnosis: Status post ORIF left distal fibular fracture, intramedullary nail left distal open tibia fracture patient was evaluated today at bedside, she is resting comfortably. She's noting no acute changes in her symptoms. Patient does have severe dementia, her verbal pain shoes were very minimal on exam. Nursing staff states she's been rather comfortable. Objective - Vital Signs Vital signs: Vital Signs Temp 98.7 F 01/08/21 07:17 Pulse 94 01/08/21 07:17 Resp 16 01/08/21 07:17 BP 124/71 01/08/21 07:17 Pulse Ox 94 L 01/08/21 07:17 Intake & Output 01/07/21 01/08/21 01/08/21 18:59 06:59 18:59 Intake Total 768 Output Total 300 850 Balance 468 -850 Intake: Oral 768 Output: Urine 300 850 Other: Voiding Method Indwelling Catheter Bedpan Indwelling Catheter - Exam Left lower extremity: There was some saturation noted to the dressing today. The splint remains in good position and condition. She is able to wiggle the toes. The skin is warm to touch both proximal distal to the splint. The compartments of the upper leg are soft. - Labs CBC & Chem 7: 01/08/21 07:36 01/06/21 10:35 Labs: Abnormal Lab Results - Last 24 Hours (Table) 01/08/21 Range/Units 07:36 RBC 2.40 L (4.10-5.20) X 10*6/uL Hgb 7.7 L (12.0-15.0) g/dL Hct 24.5 L (37.2-46.3) % MCV 102.1 H (80.0-97.0) fL MCH 32.1 H (27.0-32.0) pg MCHC 31.4 L (32.0-37.0) g/dL Assessment and Plan Assessment: Postoperative day #2 status post ORIF left distal fibular fracture, intramedullary nail left open tibia fracture Acute blood loss anemia, expected surgical outcome Plan: Pain control, continue with current medication DVT prophylaxis, continue with Lovenox Nonweightbearing left lower extremity We'll reinforce the dressing on the leg today, we'll likely change splint tomorrow Continue to follow CBC, may transfuse as hemoglobin does worsen Ice and elevate Other medical interpreter and recommendations Continue to follow during inpatient stay Time with Patient: Less than 30
[2021-01-08 13:27] VITALS: BMI 17.6
--- NOTE | 2021-01-08 17:31 | P.PN ---
Subjective Progress Note Date: 01/08/21 Patient is awake and alert today. She does not have any complaints. She has underlying dementia and is not a great historian. Her hemoglobin has been trending down since admission. Objective - Vital Signs Vital signs: Vital Signs Temp 99.2 F 01/08/21 13:54 Pulse 112 H 01/08/21 13:54 Resp 15 01/08/21 13:54 BP 126/71 01/08/21 13:54 Pulse Ox 95 01/08/21 13:54 Intake & Output 01/07/21 01/08/21 01/08/21 18:59 06:59 18:59 Intake Total 768 Output Total 300 850 575 Balance 468 -850 -575 Weight 45.359 kg Intake: Oral 768 Output: Urine 300 850 575 Other: Voiding Method Indwelling Catheter Bedpan Bedpan Indwelling Catheter Indwelling Catheter - Exam General: The patient is awake and alert, in no distress Eye: there is normal conjunctiva bilaterally. Neck: The neck is supple, there is no JVD. Cardiovascular: Normal S1-S2, no S3-S4, no murmurs. Respiratory: Lungs clear to auscultation bilaterally Gastrointestinal: Abdomen is soft, nontender Musculoskeletal: There is no pedal edema. Left lower extremity wrapped with clean dressing and splint in place Neurological:. Speech is normal. Skin: Skin is warm and dry - Labs CBC & Chem 7: 01/08/21 07:36 01/06/21 10:35 Labs: Abnormal Lab Results - Last 24 Hours (Table) 01/08/21 Range/Units 07:36 RBC 2.40 L (4.10-5.20) X 10*6/uL Hgb 7.7 L (12.0-15.0) g/dL Hct 24.5 L (37.2-46.3) % MCV 102.1 H (80.0-97.0) fL MCH 32.1 H (27.0-32.0) pg MCHC 31.4 L (32.0-37.0) g/dL Assessment and Plan Assessment: This is a 80-year-old female with past medical history noted below the presented to the emergency room with a fall. Patient was admitted under orthopedic surgery. I was asked to see her for medical management. Below is a list of her medical problems. 1. Postoperative day #2 status post ORIF for left distal fibular fracture with intramedullary nail to left distal tibial fracture. Postoperative care per orthopedic surgery. Pain well controlled. 2. Postoperative anemia, with some blood loss during surgery. We'll continue to monitor closely. Repeat CBC tomorrow. May require 1 unit of PRBC transfusion tomorrow. 3. Chronic medical problems: Underlying dementia/developmental delay, underlying asthma with no evidence of exacerbation 4. DVT prophylaxis with subcu Lovenox
[2021-01-08] MEDS: OLANZapine 7.5 MG TAB PO SCH (21:52)
[2021-01-08] MEDS: SENNOSIDES-DOCUSATE SODIUM 1 EACH TAB PO SCH (21:52)
[2021-01-09] MEDS: ENOXAPARIN 40 MG/0.4 ML SYRINGE SQ SCH (08:52)
[2021-01-09] MEDS: PANTOPRAZOLE 40 MG TABLET PO SCH (08:52)
[2021-01-09] MEDS: traMADol 50 MG TAB PO SCH ×5 (08:52→22:34)
[2021-01-09] MEDS: DOCUSATE 100 MG CAP PO SCH ×2 (08:52→19:48)
[2021-01-09] MEDS: MEMANTINE 10 MG TAB PO SCH ×2 (08:52→19:47)
[2021-01-09] MEDS: SERTRALINE 50 MG TAB PO SCH ×2 (08:52→15:56)
--- NOTE | 2021-01-09 13:52 | P.PN ---
Subjective Progress Note Date: 01/09/21 Principal diagnosis: Status post ORIF left distal fibular fracture, intramedullary nail left distal open tibia fracture patient was evaluated today at bedside, she is resting comfortably. She's noting no acute changes in her symptoms. Patient does have severe dementia, her verbal pain shoes were very minimal on exam. Nursing staff notes no acute changes Objective - Vital Signs Vital signs: Vital Signs Temp 99.5 F 01/09/21 13:39 Pulse 63 01/09/21 13:39 Resp 21 01/09/21 13:39 BP 131/60 01/09/21 13:39 Pulse Ox 94 L 01/09/21 13:39 Intake & Output 01/08/21 01/09/21 01/09/21 18:59 06:59 18:59 Output Total 575 800 200 Balance -575 -800 -200 Weight 45.359 kg Output: Urine 575 800 200 Other: Voiding Method Bedpan Indwelling Catheter Indwelling Catheter Indwelling Catheter - Exam Left lower extremity: The postoperative splint was removed today at bedside, all incisions are well healing with good suture and staple placement. There is no active drainage appreciated. There is ecchymosis and swelling noted in the lower leg, mainly surrounding the foot and ankle. She is able to wiggle the toes. The skin is warm to touch. The calf is soft, no tenderness with palpation. - Labs CBC & Chem 7: 01/08/21 07:36 01/06/21 10:35 Assessment and Plan Assessment: Postoperative day #3 status post ORIF left distal fibular fracture, intramedullary nail left open tibia fracture Acute blood loss anemia, expected surgical outcome Plan: Pain control, continue with current medication New posterior splint was applied today at bedside, please leave intact DVT prophylaxis, continue with Lovenox Nonweightbearing left lower extremity Ice and elevate Other medical and health services manager and recommendations Plan for discharge to rehab tomorrow Time with Patient: Less than 30
--- NOTE | 2021-01-09 14:36 | P.PN ---
Subjective Progress Note Date: 01/09/21 Patient is doing fairly well today. No acute events overnight. It's 2:30 PM right now on her lab work is not back yet. Objective - Vital Signs Vital signs: Vital Signs Temp 99.5 F 01/09/21 13:39 Pulse 63 01/09/21 13:39 Resp 21 01/09/21 13:39 BP 131/60 01/09/21 13:39 Pulse Ox 94 L 01/09/21 13:39 Intake & Output 01/08/21 01/09/21 01/09/21 18:59 06:59 18:59 Output Total 575 800 200 Balance -575 -800 -200 Weight 45.359 kg Output: Urine 575 800 200 Other: Voiding Method Bedpan Indwelling Catheter Indwelling Catheter Indwelling Catheter - Exam General: The patient is awake and alert, in no distress Eye: there is normal conjunctiva bilaterally. Neck: The neck is supple, there is no JVD. Cardiovascular: Normal S1-S2, no S3-S4, no murmurs. Respiratory: Lungs clear to auscultation bilaterally Gastrointestinal: Abdomen is soft, nontender Musculoskeletal: There is no pedal edema. Left lower extremity wrapped with clean dressing and splint in place Neurological:. Speech is normal. Skin: Skin is warm and dry - Labs CBC & Chem 7: 01/08/21 07:36 01/06/21 10:35 Assessment and Plan Assessment: This is a 80-year-old female with past medical history noted below the presented to the emergency room with a fall. Patient was admitted under orthopedic surgery. I was asked to see her for medical management. Below is a list of her medical problems. 1. Postoperative day #3 status post ORIF for left distal fibular fracture with intramedullary nail to left distal tibial fracture. Postoperative care per orthopedic surgery. Pain well controlled. 2. Postoperative anemia, with some blood loss during surgery. We'll continue to monitor closely. Repeat CBC tomorrow. May require 1 unit of PRBC transfusion tomorrow. 3. Chronic medical problems: Underlying dementia/developmental delay, underlying asthma with no evidence of exacerbation 4. DVT prophylaxis with subcu Lovenox Awaiting CBC from this morning. Transfuse as needed for hemoglobin less than 7. Discharge planning per primary team to nursing home facility Discharge is being delayed by lab result delayed at the central lab
--- NOTE | 2021-01-09 15:17 | XR ---
EXAMINATION TYPE: XR tibia fibula LT DATE OF EXAM: 01/09/2021 CLINICAL HISTORY: Postop evaluation TECHNIQUE: AP and lateral images of the left tibia and fibula are obtained. COMPARISON: 01/06/2021 FINDINGS: There is an intramedullary nasir identified within the tibial fracture component. Distal fibu lar fixation plate and screws traverse displaced fibular fracture. Overlying cast material is noted. Alignment is improved relative to prior study. IMPRESSION: ORIF left tibia and fibula as noted.
[2021-01-09 17:29] LABS: Basophils # (A) 0.03 X 10*3/uL (0.00-0.10); Basophils % (A) 0.5 %; Eosinophils # (A) 0.34 X 10*3/uL (0.04-0.35); Eosinophils % (A) 5.2 %; Lymphocytes # (A) 1.87 X 10*3/uL (0.90-5.00); Lymphocytes % (A) 28.8 %; Monocytes # (A) 0.51 X 10*3/uL (0.20-1.00); Monocytes % (A) 7.8 %; Neutrophils # (A) 3.72 X 10*3/uL (1.80-7.70); Neutrophils % (A) 57.2 %
[2021-01-09 17:30] LABS: HCT 21.8 % (37.2-46.3); HGB 6.9 g/dL (12.0-15.0); MCH 31.8 pg (27.0-32.0); MCHC 31.7 g/dL (32.0-37.0); MCV 100.5 fL (80.0-97.0); Mean Platelet Volume 11.1 fL (9.5-12.2); Platelet Count 181 X 10*3/uL (140-440); RBC 2.17 X 10*6/uL (4.10-5.20); RDW 14.3 % (11.5-14.5)
[2021-01-09 19:16] LABS: African American GFR (CKD) 100.5 (60.0-200.0); Anion Gap 6.4 mmol/L (4.00-12.00); BUN/Creat Ratio 16.67 Ratio (12.00-20.00); Calcium 7.2 mg/dL (8.7-10.3); Carbon Dioxide 24.6 mmol/L (21.6-31.8); Non-African American GFR(CKD) 86.7 (60.0-200.0); Potassium 3.9 mmol/L (3.5-5.5)
[2021-01-09] MEDS: SENNOSIDES-DOCUSATE SODIUM 1 EACH TAB PO SCH (19:47)
[2021-01-09] MEDS: ACETAMINOPHEN TAB 325 MG TAB PO PRN (19:47)
[2021-01-09] MEDS: OLANZapine 7.5 MG TAB PO SCH (19:48)
[2021-01-09 22:33] LABS: Basophils % (A) 0 %; Eosinophils # (A) 0.3 k/uL (0-0.7); Eosinophils % (A) 4 %; HCT 21.7 % (34.0-46.0); HGB 7.5 gm/dL (11.4-16.0); Lymphocytes # (A) 1.9 k/uL (1.0-4.8); Lymphocytes % (A) 28 %; MCHC 34.6 g/dL (31.0-37.0); MCV 95.4 fL (80.0-100.0); Mean Platelet Volume 8.3; Monocytes # (A) 0.4 k/uL (0-1.0); Monocytes % (A) 6 %; Neutrophils # (A) 4.1 k/uL (1.3-7.7); Neutrophils % (A) 60 %; Platelet Count 191 k/uL (150-450); RBC 2.27 m/uL (3.80-5.40); WBC 6.8 k/uL (3.8-10.6)
[2021-01-10] MEDS: MEMANTINE 10 MG TAB PO SCH (08:17)
[2021-01-10] MEDS: SERTRALINE 50 MG TAB PO SCH (08:17)
[2021-01-10] MEDS: PANTOPRAZOLE 40 MG TABLET PO SCH (08:17)
[2021-01-10] MEDS: traMADol 50 MG TAB PO SCH ×2 (08:17→12:01)
[2021-01-10] MEDS: ENOXAPARIN 40 MG/0.4 ML SYRINGE SQ SCH (08:17)
[2021-01-10] MEDS: DOCUSATE 100 MG CAP PO SCH (08:17)
[2021-01-10 08:30] VITALS: RESP 18
--- NOTE | 2021-01-10 10:07 | P.PN ---
Subjective Progress Note Date: 01/10/21 Principal diagnosis: Status post ORIF left distal fibular fracture, intramedullary nail left distal open tibia fracture patient was evaluated today at bedside, she is resting comfortably. She's noting no acute changes in her symptoms. Patient does have severe dementia, her verbal pain shoes were very minimal on exam. Nursing staff notes no acute changes Objective - Vital Signs Vital signs: Vital Signs Temp 98.7 F 01/10/21 08:00 Pulse 99 01/10/21 08:00 Resp 18 01/10/21 08:00 BP 149/79 01/10/21 08:00 Pulse Ox 94 L 01/10/21 08:00 Intake & Output 01/09/21 01/10/21 01/10/21 18:59 06:59 18:59 Output Total 200 1800 Balance -200 -1800 Output: Urine 200 1800 Other: Voiding Method Indwelling Catheter Indwelling Catheter # Bowel Movements 2 - Exam Left lower extremity: The postoperative splint was removed today at bedside, all incisions are well healing with good suture and staple placement. There is no active drainage appreciated. There is ecchymosis and swelling noted in the lower leg, mainly surrounding the foot and ankle. She is able to wiggle the toes. The skin is warm to touch. The calf is soft, no tenderness with palpation. - Labs CBC & Chem 7: 01/09/21 22:12 01/09/21 07:00 Labs: Abnormal Lab Results - Last 24 Hours (Table) 01/09/21 01/09/21 01/09/21 Range/Units 07:00 07:00 22:12 RBC 2.17 L (4.10-5.20) X 10*6/uL Hgb 6.9 L* (12.0-15.0) g/dL Hct 21.8 L (37.2-46.3) % MCV 100.5 H (80.0-97.0) fL MCHC 31.7 L (32.0-37.0) g/dL Calcium 7.2 L (8.7-10.3) mg/dL Crossmatch See Detail 01/09/21 Range/Units 22:12 RBC 2.27 L (4.10-5.20) X 10*6/uL Hgb 7.5 L (12.0-15.0) g/dL Hct 21.7 L (37.2-46.3) % MCV (80.0-97.0) fL MCHC (32.0-37.0) g/dL Calcium (8.7-10.3) mg/dL Crossmatch Assessment and Plan Assessment: Postoperative day #4 status post ORIF left distal fibular fracture, intrame dullary nail left open tibia fracture Acute blood loss anemia, expected surgical outcome Plan: Pain control, continue with current medication New posterior splint was applied today at bedside, please leave intact DVT prophylaxis, continue with Lovenox Nonweightbearing left lower extremity Ice and elevate Other medical billing clerk and recommendations Plan for discharge to rehab today Time with Patient: Less than 30
--- NOTE | 2021-01-10 13:41 | P.DS ---
Providers Date of admission: 01/06/21 11:45 Expected date of discharge: 01/10/21 Attending physician: Kevin Nolan DO Consults: 01/06/21 11:46 Consult Physician Routine Consulting Provider: Demarcus Roman Consult Reason/Comments: medical care Do you want consulting provider notified?: Yes Primary care physician: [facility] Course: Date of admission: 01/06/2021 Date of discharge: 01/10/2021 Admission diagnosis: Grade 3 open left distal third tibia fracture, left distal fibular fracture Discharge diagnosis: Status post intramedullary nail left tibia fracture, ORIF left distal fibular fracture Attending physician: Dr. Nolan Surgical procedures: Intramedullary nail left tibia fracture, ORIF left distal fibular fracture Brief history: Patient is a 80-year-old female who presented to [facility] on 01/06/2021 after sustaining a fall at home. We were contacted immediately by the emergency room staff regarding the patient, there is a com pound fracture involving the left tibia. Dr. Nolan reported to the ER to evaluate the patient, wash out was performed at bedside along with a simple skin closure and splint placement. She was booked for surgery on 01/06/2021. Hospital course: Details of patient's surgery can be found in operative report. Patient tolerated the procedure well and was subsequently transported to orthopedic floor. Patient's orthopeidc and medical care was provided daily. Patient had daily laboratory tests performed for evaluation of overall blood counts. Patient had daily physical therapy to include strengthening range of motion as well as education with walker ambulation. Patient was treated with Lovenox for their postoperative DVT prophylaxis during their inpatient stay. Patient was noted to have a relatively uneventful postoperative course. Patient reported satisfactory pain control with oral pain medications by postoperative day 0. Patient showed satisfactory progress with physical therapy. Patient moved steadily through the program and had no difficulty meeting the goals by postoperative day 4. Given patient's otherwise satisfactory course and having met physical therapy goals, plan is to discharge patient rehab on postoperative day 4. Discharge condition/disposition: Patient will be discharged to rehab in stable condition. Discharge medications: Instructions are given on resumption of patient's normal daily medications per primary care recommendation, in addition patient will be prescribed heparin 5000 units, Tylenol 650 mg. Discharge instructions: 1. Do not remove the posterior splint, keep the foot elevated often 2. nonweightbearing left lower extremity 3. Ice and elevate when necessary. Do not exceed 20 minutes per hour with ice pack. 4. Utilize compression sleeve until seen at first follow up appointment. 7. Pain meds and anticoagulants per prescription. 8. Pain medication has potential to cause constipation. Increase oral fluid and fiber intake. Contact primary care provider if you have not had a bowel movement within 48 hours after discharge 9. No anti-inflammatory medication until discussed at first post operative visit, this including Motrin, Aleve, Mobic, Diclofenac 10. Follow up in office at 2 weeks postop with Jonathan Gilbert PA-C/Sloan Chavez 11. Follow up with your primary care doctor 7-10 days after discharge. 12. Contact [facility] with any questions, . Procedures: Intramedullary nail left open tibia fracture, ORIF left distal fibular fracture Patient Condition at Discharge: Serious Plan - Discharge Summary Discharge Rx Participant: No New Discharge Prescriptions: New Heparin Sodium,Porcine [Heparin Sodium] 5,000 unit SQ Q12HR #30 vial Acetaminophen Tab [Tylenol Tab] 500 mg PO Q6H PRN #30 tablet PRN Reason: Pain Continue Famotidine [Pepcid] 20 mg PO DAILY PRN PRN Reason: Gi Upset busPIRone HCL [Buspar] 7.5 mg PO TID@0800,1700,1999 Sennosides/Docusate Sodium [Senna Plus 8.6-50 mg Softgel] 2 cap PO HS Montelukast [Singulair] 10 mg PO DAILY PRN PRN Reason: Allergy Symptoms Albuterol Nebulized [Ventolin Nebulized] 2.5 mg INHALATION RT-Q4H PRN PRN Reason: Shortness Of Breath Calcium 500 + D 400 1 tab PO DAILY@0800 Colloidal Oatmeal [Eucerin Eczema Relief] 1 applic TOPICAL HS@1999 Alendronate Sodium [Fosamax] 70 mg PO WE Mirabegron [Myrbetriq] 50 mg PO DAILY@0800 OLANZapine [ZyPREXA] 7.5 mg PO HS@1999 Memantine [Namenda] 10 mg PO BID@0800,1999 Aspirin EC [Ecotrin Low Dose] 81 mg PO DAILY@0800 Mirtazapine [Remeron] 15 mg PO HS Sertraline [Zoloft] 50 mg PO BID@0800,1700 Ergocalciferol (Vitamin D2) [Vitamin D2 (2000 Iu)] 50 mcg PO DAILY@0800 Discontinued diphenhydrAMINE [Benadryl] 25 - 50 mg PO Q6H PRN PRN Reason: HIVES hydrOXYzine HCL [Atarax] 50 mg PO Q6H PRN PRN Reason: Anxiety Midodrine HCl [ProAmantine] 2.5 mg PO BID@799,1999 Docusate [Colace] 100 mg PO BID@08,1999 Discharge Medication List Albuterol Nebulized [Ventolin Nebulized] 2.5 mg INHALATION RT-Q4H PRN 01/06/21 [History] Alendronate Sodium [Fosamax] 70 mg PO WE 01/06/21 [History] Aspirin EC [Ecotrin Low Dose] 81 mg PO DAILY@0800 01/06/21 [History] Calcium 500 + D 400 1 tab PO DAILY@0801/06/21 [History] Colloidal Oatmeal [Eucerin Eczema Relief] 1 applic TOPICAL HS@199901/06/21 [History] Ergocalciferol (Vitamin D2) [Vitamin D2 (2000 Iu)] 50 mcg PO DAILY@0800 01/06/21 [History] Famotidine [Pepcid] 20 mg PO DAILY PRN 01/06/21 [History] Memantine [Namenda] 10 mg PO BID@0800,199901/06/21 [History] Mirabegron [Myrbetriq] 50 mg PO DAILY@0800 01/06/21 [History] Mirtazapine [Remeron] 15 mg PO HS 01/06/21 [History] Montelukast [Singulair] 10 mg PO DAILY PRN 01/06/21 [History] OLANZapine [ZyPREXA] 7.5 mg PO HS@199901/06/21 [History] Sennosides/Docusate Sodium [Senna Plus 8.6-50 mg Softgel] 2 cap PO HS 01/06/21 [History] Sertraline [Zoloft] 50 mg PO BID@0800,1700 01/06/21 [History] busPIRone HCL [Buspar] 7.5 mg PO TID@0800,1700,199901/06/21 [History] Acetaminophen Tab [Tylenol Tab] 500 mg PO Q6H PRN #30 tablet 01/10/21 [Rx] Heparin Sodium,Porcine [Heparin Sodium] 5,000 unit SQ Q12HR #30 vial 01/10/21 [Rx] Follow up Appointment(s)/Referral(s): Miki Weston MD [Primary Care Provider] - As Needed Kevin Nolan DO [Doctor of Osteopathic Medicine] - 01/18/21 8:40 am Patient Instructions/Handouts: Fall Prevention for Older Adults (DC), ORIF of a Leg Fracture (DC) Activity/Diet/Wound Care/Special Instructions: Orthopedic discharge instructions: 1. Do not remove the splint on the left leg 2. Nonweightbearing left lower extremity 3. Ice and elevate often 4. Plan for follow-up at [facility] [address] Nolan, with any questions Indu D/C'd 10am 01/10/21, monitor for urine retention Discharge Disposition: TRANSFER TO SNF/ECF
[2021-01-10 14:10] VITALS: BP 129/58; PULSE 76; TEMP 99.5
--- NOTE | 2021-01-12 02:05 | PN ---
PROGRESS NOTE DATE OF SERVICE: 01/10/2021. HOSPITAL COURSE: This is a 80-year-old patient who had a left distal tibia fibula fracture with intramedullary nail placement. Today: Sitting up on a chair. Comfortable. Pain controlled. Had about 50% of her breakfast. No new symptoms. On examination, 98.7, pulse 99, respiration 18, blood pressure 129/58, 95% on room air. General appearance: Thin build, sitting up in a chair, awake. Cardiovascular: 1st and 2nd sounds normal. No edema. Respiratory: Effort normal, lungs are clear. Abdomen: Soft, nontender, liver, spleen not palpable. Psychiatry: Awake, answering simple questions. INVESTIGATIONS: White count 6.8, hemoglobin 7.5, platelets 191. Potassium 3.9. ASSESSMENT AND PLAN: 1. Left open communicated distal one third tibia shaft fracture/fibula fracture followed by open reduction internal fixation of the fracture. 2. Primary osteoarthritis. 3. Chronic urinary stress incontinence. 4. Gastroesophageal reflux disease. 5. Cognitive impairment. 6. Urinary stress incontinence. 7. Depression, not otherwise specified. PLAN: Continue current medications that include BuSpar, Zoloft, Zyprexa, Singulair, Remeron, Myrbetriq, Namenda, Pepcid, Fosamax, Ventolin. The patient will be getting discharged to rehab. Follow up with the family doctor. Thank you Dr. Nolan. Copy to Dr. Weston. MMYULIYAL / MELISSA: [id number] /
== END 2021-01-10 15:09 | DRG 492 ==
LOC: EEVIPCON 09:27 → EC 09:27 → 5NMEDONC 11:45 → 4SSUR 18:38
PROVIDERS: ADMIT Orthopaedic Surgery; ATTEND Orthopaedic Surgery
PROC: 0JQP0ZZ Repair Left Lower Leg Subcutaneous Tissue and Fascia, Open Approach (ICD-10-PCS; 2021-01-06)
PROC: 0QSHXZZ Reposition Left Tibia, External Approach (ICD-10-PCS; 2021-01-06)
PROC: 0QSKXZZ Reposition Left Fibula, External Approach (ICD-10-PCS; 2021-01-06)
PROC: 0QSH06Z Reposition Left Tibia with Intramedullary Internal Fixation Device, Open Approach (ICD-10-PCS; principal; 2021-01-08)
PROC: 0QBK0ZZ Excision of Left Fibula, Open Approach (ICD-10-PCS; principal; 2021-01-08)
PROC: 0QBH0ZZ Excision of Left Tibia, Open Approach (ICD-10-PCS; principal; 2021-01-08)
PROC: 0QSK04Z Reposition Left Fibula with Internal Fixation Device, Open Approach (ICD-10-PCS; principal; 2021-01-08)
DX: S82.302C Unspecified fracture of lower end of left tibia, initial encounter for open fracture type IIIA, IIIB, or IIIC (principal); S82.832B Other fracture of upper and lower end of left fibula, initial encounter for open fracture type I or II; D62 Acute posthemorrhagic anemia; W18.30XA Fall on same level, unspecified, initial encounter; Y92.009 Unspecified place in unspecified non-institutional (private) residence as the place of occurrence of the external cause; F03.90 Unspecified dementia, unspecified severity, without behavioral disturbance, psychotic disturbance, mood disturbance, and anxiety; F41.9 Anxiety disorder, unspecified; J45.909 Unspecified asthma, uncomplicated; S82.832A Other fracture of upper and lower end of left fibula, initial encounter for closed fracture; Z79.82 Long term (current) use of aspirin; Z79.83 Long term (current) use of bisphosphonates; Z79.899 Other long term (current) drug therapy; M19.90 Unspecified osteoarthritis, unspecified site; Z20.822 Contact with and (suspected) exposure to COVID-19; F79 Unspecified intellectual disabilities; Z96.60 Presence of unspecified orthopedic joint implant
CPT/HCPCS: 36415; 71045; 72170; 80048; 85025; 85027; 85610; 85730; 86850; 86900; 86901; 86920; 87635; 90715; 94640; 96365; 96375; 96376; 99285